=== PATIENT | male | born 1975 | race Two or more races ===

== ENCOUNTER 2022-05-28 20:50 | Emergency (ER) | payer OTHER ==
[~2022-05-28] VITALS: Ht 165.1 cm; Wt 68.0 kg
[2022-05-28] MEDS ORDERED: LISINOPRIL20 MG (21:09)
[2022-05-28] MEDS ORDERED: MOTION SICKNESS25 M1 PO (22:50)
== END 2022-05-29 00:03 | disposition home or self-care (01) ==
LOC: ER 20:50
DX: R42 Dizziness and giddiness (principal); Z88.6 Allergy status to analgesic agent; I10 Essential (primary) hypertension